=== PATIENT | female | born 1980 | race Caucasian/White ===

== ENCOUNTER 2018-08-23 09:14 | Emergency (ER) | payer MEDICAID ==
[~2018-08-23] VITALS: Ht 160 cm; Wt 64.0 kg
[~2018-08-23 09:14] MED LIST: PNV1TABL43 PO
[2018-08-23 09:22] VITALS: Ht 160 cm; Wt 64.0 kg
[2018-08-23] MEDS ORDERED: SOD CHLORIDE 0.9% 1,000 ML IV STA (10:20)
[2018-08-23] MEDS ORDERED: DIPHENHYDRAMINE 50 MG INJ IV ONE (10:30)
[2018-08-23] MEDS ORDERED: METOCLOPRAMIDE 10 MG INJ IV ONE (10:30)
[2018-08-23] MEDS ORDERED: CEFTRIAXONE 1 GM/50 ML (PMX) 50 ML IVPB ONE (12:30)
[2018-08-23] MEDS ORDERED: ACET500C5 PO (12:48)
[2018-08-23] MEDS ORDERED: BEN25 PO (12:48)
[2018-08-23] MEDS ORDERED: NITR-58 PO (12:48)
[2018-08-23] MEDS ORDERED: METO10TA92 PO (12:48)
[2018-08-23 13:14] VITALS: BP 120/61; PULSE 81; RESP 18
--- NOTE | 2018-08-23 13:30 | ERD ---
ER Documentation Chief Complaint Chief Complaint pt is bib family with c/o vomiting and dizzy 8 wks preg HPI 38-year-old female patient with no significant past medical history presents to the ED complaining of vomiting, dizziness, slight vaginal bleeding during her . She reports that she has had a few episodes of nonbilious nonbloody vomiting that started yesterday. Reports last menstruation was on June 15, 2018. Denies any chest pain, shortness of breath, nausea, vomiting, diarrhea, neck stiffness. Patient reports that she is unsure of her [employer]. Denies dysuria, urgency, frequency, hematuria. ROS All systems reviewed and are negative except as per history of present illness. Medications Home Meds Active Scripts Acetaminophen* (Tylophen*) 500 Mg Capsule, 1 CAP PO Q6H PRN for PAIN AND OR ELEVATED TEMP, #20 CAP Prov:SADIQ ACOSTA-C 08/23/18 Diphenhydramine Hcl* (Benadryl*) 25 Mg Cap, 25 MG PO Q6, #10 CAP Prov:SADIQ ACOSTA-Cameron 08/23/18 Metoclopramide* (Reglan*) 10 Mg Tablet, 10 MG PO Q6 PRN for NAUSEA AND/OR VOMITING, #10 TAB Prov:SADIQ ACOSTA-Cameron 08/23/18 Nitrofurantoin Monohyd Macrocr* (Macrobid*) 100 Mg Capsr, 100 MG PO BID for 7 Days, CAP Prov:SADIQ ACOSTA-C 08/23/18 Reported Medications Vit/Fe Fumarate/Fa* ( Vitamin Tablet*) 1 Tab Tablet, 1 TAB PO DAILY 05/27/13 Allergies Allergies: Coded Allergies: Penicillins (Verified Allergy, Unknown, 08/23/18) PMhx/Soc Medical and Surgical Hx: pt denies Medical Hx, pt denies Surgical Hx Hx Alcohol Use: No Hx Substance Use: No Hx Tobacco Use: No FmHx Family History: No diabetes, No coronary disease Physical Exam Vitals Vital Signs Date Temp Pulse Resp B/P (MAP) Pulse Ox O2 O2 Flow FiO2 Time Delivery Rate 08/23/18 98.9 81 18 120/61 98 Room Air 13:14 (80) 08/23/18 98.9 64 18 126/63 98 09:22 (84) Physical Exam Const: Prd-itc-cucwrexxt, well-nourished. In no acute distress. Head: Atraumatic, normocephalic Eyes: Normal Conjunctiva without injection. No purulent discharge. PERRLA. EOMI ENT: Normal external ear. Ear canal without erythema. Tympanic membrane pearly jean without effusion or bulging. Nasal canal clear with normal turbinates. Moist oropharynx without tonsillar exudates. Non-erythematous pharynx. Uvula midline. No drooling. No trismus. Neck: No cervical midline tenderness. Full range of motion. No meningismus. No cervical lymphadenopathy. No JVD. Resp: Clear to auscultation bilaterally. No wheezing, rhonchi, rales, or crackles. No accessory muscle use. No retractions. Cardio: Regular rate and rhythm. No murmurs, rubs or gallops. Abd: Soft, non tender, non distended. Normal bowel sounds. No palpable masses. No rebound tenderness. No guarding. Negative McBurney's Point. Negative Aguilera's Sign. Skin: Normal skin turgor. No petechiae or rashes Back: No midline tenderness. No CVA tenderness. Ext: No cyanosis, or edema. Distal pulses intact bilaterally. Neur: Awake and alert. Normal gait. Normal coordination. Cranial Nerves II- VII intact. Normal finger to nose. Muscle strength 5/5. Sensation intact. Psych: Normal Mood and Affect Results 24 hrs Laboratory Tests Test 08/23/18 10:41 White Blood Count 10.0 10^3/ul Red Blood Count 4.74 10^6/ul Hemoglobin 13.6 g/dl Hematocrit 39.8 % Mean Corpuscular Volume 84.0 fl Mean Corpuscular Hemoglobin 28.7 pg Mean Corpuscular Hemoglobin Concent 34.2 g/dl Red Cell Distribution Width 12.4 % Platelet Count 252 10^3/UL Mean Platelet Volume 9.5 fl Immature Granulocytes % 0.300 % Neutrophils % 87.0 % Lymphocytes % 10.2 % Monocytes % 2.3 % Eosinophils % 0.1 % Basophils % 0.1 % Nucleated Red Blood Cells % 0.0 /100WBC Immature Granulocytes # 0.030 10^3/ul Neutrophils # 8.7 10^3/ul Lymphocytes # 1.0 10^3/ul Monocytes # 0.2 10^3/ul Eosinophils # 0.0 10^3/ul Basophils # 0.0 10^3/ul Nucleated Red Blood Cells # 0.0 10^3/ul Urine Color YELLOW Urine Clarity CLOUDY Urine pH 6.0 Urine Specific [place] 1.024 Urine Ketones 2+ mg/dL Urine Nitrite NEGATIVE mg/dL Urine Bilirubin NEGATIVE mg/dL Urine Urobilinogen NEGATIVE mg/dL Urine Leukocyte Esterase 2+ Jazlyn/ul Urine Microscopic RBC > 182 /HPF Urine Microscopic WBC 40 /HPF Urine Squamous Epithelial Cells MANY /HPF Urine Mucus MODERATE /HPF Urine Hemoglobin 3+ mg/dL Urine Glucose NEGATIVE mg/dL Urine Total Protein 2+ mg/dl Sodium Level 137 mmol/L Potassium Level 3.8 mmol/L Chloride Level 104 mmol/L Carbon Dioxide Level 25 mmol/L Anion Gap 8 Blood Urea Nitrogen 11 mg/dl Creatinine 0.47 mg/dl Est Glomerular Filtrat Rate mL/min > 60 mL/min Glucose Level 119 mg/dl Calcium Level 9.3 mg/dl Total Bilirubin 0.3 mg/dl Direct Bilirubin 0.00 mg/dl Indirect Bilirubin 0.3 mg/dl Aspartate Amino Transf (AST/SGOT) 22 IU/L Alanine Aminotransferase (ALT/SGPT) 12 IU/L Alkaline Phosphatase 72 IU/L Total Protein 7.6 g/dl Albumin 4.2 g/dl Globulin 3.40 g/dl Albumin/Globulin Ratio 1.23 Lipase 62 U/L Beta HCG, Quantitative 90051.0 mIU/ml Current Medications Medications Dose Sig/Kristie Start Time Status Last (Trade) Ordered Route PRN Stop Time Admin Dose Reason Admin Sodium 1,000 ml @ Q1H STAT 08/23/18 DC 08/23/18 Chloride 1,000 mls/hr IV 10:20 10:38 08/23/18 11:19 10 mg ONCE ONCE 08/23/18 DC 08/23/18 Metoclopramid IV 10:30 10:38 e HCl 08/23/18 10:31 (Reglan) 25 mg ONCE ONCE 08/23/18 DC 08/23/18 Diphenhydrami IV 10:30 10:38 ne HCl 08/23/18 10:31 (Benadryl) Ceftriaxone 50 ml @ ONCE ONCE 08/23/18 DC Sodium 100 mls/hr IVPB 12:30 08/23/18 12:30 Procedures/MDM 38-year-old female patient presents to ED complaining of vaginal bleeding, vomiting, dizziness that started in her . Patient is afebrile and nontoxic-appearing. An ultrasound, beta-hCG, CBC, type and RH, UA was ordered to evaluate patient. CBC: No evidence of severe infection or anemia Urine: No elevation in nitrites, 2+ leukocyte esterase, 3+ hematuria. Rh: O positive. No indication for Rhogam at this time. beta Hc IMPRESSION: 1. Single living intrauterine gestation with estimated gestational age of 9 weeks and 5 days +/- 5 days. 2. Subchorionic hemorrhage. Patient has a single IUP of 9 weeks, 5 days. Patient also has a urinary tract infection based on 2+ leukocyte esterase noted on her urinalysis. Patient's bleeding symptoms have stabilized while in the department. Subchorionic hemorrhage noted. Pelvic rest recommended. Low suspicion for symptomatic anemia, ectopic , sepsis, PID, appendicitis, ovarian torsion, tubo- ovarian abscess, surgical abdomen, or other emergent conditions. Patient was educated that there is a risk for threatened . This patient presents to the ED with symptoms consistent with a viral acute upper respiratory infection. Patient's physical exam include lungs which were clear to auscultation and a normal pulse oximetry. There is a low suspicion for pneumonia, pneumothorax, mononucleosis, pulmonary embolism, epiglottitis, otitis media, otitis externa, viral/strep pharyngitis, sinusitis, myocarditis, pericarditis, endocarditis, peritonsillar abscess, mastoiditis, retropharyngeal abscess, meningitis, sepsis, acute abdomen or other emergent conditions. Fluids, rest, and symptomatic treatment are recommended for the management of patient's symptoms. Diagnosis: Vaginal bleeding and patient less than 20 weeks, Urinary tract infection, Cough Discharge medications: Macrobid, Reglan, Benadryl Patient was instructed to return to the ED for any new or worsening symptoms. They should otherwise follow up with the primary care provider within 2-3 days. The patient's questions were answered at the time of discharge. Patient understo od and agreed with discharge management. Patient to follow up with [employer] in 2 days for further evaluation and treatment. Patient is to return sooner to the ED for any worsening symptoms. Patient's questions were answered. Patient understood and agreed with discharge plan. Departure Diagnosis: Primary Impression: Vaginal bleeding in patient at less than 20 weeks ges... Additional Impressions: Urinary tract infection Urinary tract infection type: site unspecified Hematuria presence: with hematuria Qualified Codes: N39.0 - Urinary tract infection, site not specified; R31.9 - Hematuria, unspecified Cough Condition: Stable Patient Instructions: Urinary Tract Infections in Women, Vaginal Bleed in , Uri, Viral, No Abx (Adult) Referrals: [facility] Usted se angela hecho un examen mdico de control que le indica que no est en maykel condicin que requiera tratamiento urgente en el Departamento de Emergencia. Un estudio ms profundo y el tratamiento de chiang condicin pueden esperar sin ningn riesgo hasta que usted sea atendida/o en el consultorio de chiang mdico o maykel clnica. Es responsabilidad suya arreglar maykel roxy para el seguimiento del norm. MANEJO DE CONDICIONES NO URGENTES EN EL FUTURO 1) Si usted tiene un mdico de atencin primaria: Usted debera llamar a chiang mdico de atencin primaria antes de venir al departamento de emergencia. Despus de las horas de consultorio, chiang doctor o chiang asociado/a est disponible por telfono. El mdico o enfermero de neli en el servicio telefnico puede asesorarle por franco medio para atender el problema, o norm contrario se puede programar maykel roxy. 2) Si usted no tiene un mdico de atencin primaria: Llame al mdico o clnica de referencia que aparece abajo carmelo las horas de consultorio para hacer maykel roxy para que le vean. CLINICAS: [facility] [phone] [phone] [facility] [phone] [address] [facility] [phone] [facility]. [facility] 848 [phone] 68[address] [facility] [phone] [facility] () Usted se angela hecho un examen mdico de control que le indica que no est en maykel condicin que requiera tratamiento urgente en el Departamento de Emergencia. Un estudio ms profundo y el tratamiento de chiang condicin pueden esperar sin ningn riesgo hasta que usted sea atendida/o en el consultorio de chiang mdico o maykel clnica. Es responsabilidad suya arreglar maykel roxy para el seguimiento del norm. MANEJO DE CONDICIONES NO URGENTES EN EL FUTURO 1) Si usted tiene un mdico de atencin primaria: Usted debera llamar a chiang mdico de atencin primaria antes de venir al departamento de emergencia. Despus de las horas de consultorio, chiang doctor o chiang asociado/a est disponible por telfono. El mdico o enfermero de neli en el servicio telefnico puede asesorarle por franco medio para atender el problema, o norm contrario se puede programar maykel roxy. 2) Si usted no tiene un mdico de atencin primaria: Llame al mdico o condado institucions de referencia que aparece abajo carmelo las horas de consultorio para hacer maykel roxy para que le vean. SI USTED NO PUEDE PAGAR PARA DAVID UN MEDICO puede ir a: [facility] [address] [place] [address] [facility] [address] [place] [address] [facility] [address] [place] [address] [facility] [address] [place] [address] [employer] [place] [address] [facility] [address] [place] [address] OFFICE FAX , JOSE DE JESUS [address] [place] [address] DR. SINCLAIR, GRISEL [address] [place] [address] DR KEATING, [facility] [address] [facility], [address], [place] [address] DR PERERACHANCE, [facility] [address] [place] [address] [facility] [address] [place] [address] [address] [facility] [id number] - [address] SHIELDS, LUTHER [address], [place] [address] DR DONALDSON, LILLIE [address] [facility]. [address], [place] [address] DR SHELDON, FARID [address] [place], [place] [id number] [facility] Hours: 8:00 am - 5:00 pm Additional Instructions: Llame al doctor MAANA y suman maykel ROXY PARA DENTRO DE 2-3 RODRIGUEZ.Dgale a la secretaria que nosotros le instruimos hacer esta roxy.Avise o llame si chiang condicin se empeora antes de la roxy. Regresa aqui si peor o no mejor. SADIQ ACOSTA PA-C Aug 23, 2018 13:30
== END 2018-08-23 13:22 | disposition home or self-care (01) ==
LOC: FTE 09:14
DX: O20.9 Hemorrhage in early pregnancy, unspecified (principal); O23.41 Unspecified infection of urinary tract in pregnancy, first trimester; O99.89 Other specified diseases and conditions complicating pregnancy, childbirth and the puerperium; R05 Cough; Z3A.09 9 weeks gestation of pregnancy
CPT/HCPCS: 76801; 80053; 81001; 83690; 84702; 85025; 86900; 86901; J1200; J2765; J7030; 36415; 96374; 96375

== ENCOUNTER 2018-09-16 16:24 | Observation (INO) | payer MEDICAID ==
[~2018-09-16] VITALS: Ht 167.6 cm; Wt 58.6 kg
[~2018-09-16 16:24] MED LIST changes: +ACET500C5 PO; +BEN25 PO; +METO10TA92 PO; +NITR-58 PO
[2018-09-16] MEDS ORDERED: ACETAMINOPHEN 325 MG TAB PO STA (16:58)
[2018-09-16] MEDS ORDERED: ONDANSETRON 4 MG INJ ONE (18:56)
[2018-09-16] MEDS ORDERED: ONDANSETRON 4 MG INJ IV STA ×3 (18:57→23:58)
[2018-09-16] MEDS ORDERED: SOD CHLORIDE 0.9% 1,000 ML IV ONE (19:00)
[2018-09-16] MEDS ORDERED: HYDROCODONE/APAP (5/325) TAB PO ONE (22:00)
[2018-09-16] MEDS ORDERED: LACTATED RINGER'S 1,000 ML IV ONE (22:00)
[2018-09-17] VITALS (12 sets, daily range): BP systolic 101–149; BP diastolic 54–112; PULSE 89–106; RESP 18–36; Ht 167.6 cm; Wt 58.6 kg
[2018-09-17] MEDS ORDERED: SOD CHLORIDE 0.9% 1,000 ML IV ONE
[2018-09-17] MEDS ORDERED: METHYLERGONOVINE 0.2 MG INJ IM ONE (01:00)
--- NOTE | 2018-09-17 01:08 | ERD ---
ER Documentation Chief Complaint Chief Complaint Complains of vag bleed and since today HPI 38-year-old female coming in today with Chief Complaint: vaginal bleeding History of Present Illness: Patient coming in today with complaint of vaginal bleeding. Patient reports she is 12 to 13 weeks . Patient reports passing a large clot at home at approximately 3:30 that appeared to be a fetus. Patient is G5, P2 patient reports visit on. 09/13 in which she was informed she was having a possible miscarriage. Patient is having bleeding with clots. Associated symptoms includes abdominal pain. Review of systems: All systems were reviewed and are negative except for what is indicated in the history of present illness. Past Medical History: Negative for hypertension, diabetes or other medical problems Social History: Patient denies tobacco, alcohol, elicit drug use Medications: None Allergies: NKDA Social Concerns: Denies ROS All systems reviewed and are negative except as per history of present illness. Medications Home Meds Reported Medications Vit #76/Iron,Carb/FA (Prenatabs Rx Tablet) 1 Each Tablet, 1 EACH PO D AILY, TAB 09/17/18 Discontinued Reported Medications Vit/Fe Fumarate/Fa* ( Vitamin Tablet*) 1 Tab Tablet, 1 TAB PO DAILY 05/27/13 Discontinued Scripts Acetaminophen* (Tylophen*) 500 Mg Capsule, 1 CAP PO Q6H PRN for PAIN AND OR ELEVATED TEMP, #20 CAP Prov:SADIQ ACOSTA PA-C 08/23/18 Diphenhydramine Hcl* (Benadryl*) 25 Mg Cap, 25 MG PO Q6, #10 CAP Prov:SADIQ ACOSTA PA-C 08/23/18 Metoclopramide* (Reglan*) 10 Mg Tablet, 10 MG PO Q6 PRN for NAUSEA AND/OR VOMITING, #10 TAB Prov:SADIQ ACOSTA PA-C 08/23/18 Nitrofurantoin Monohyd Macrocr* (Macrobid*) 100 Mg Capsr, 100 MG PO BID for 7 Days, CAP Prov:SADIQ ACOSTA PA-C 08/23/18 Allergies Allergies: Coded Allergies: Penicillins (Verified Allergy, Unknown, 09/17/18) PMhx/Soc Medical and Surgical Hx: pt denies Medical Hx, pt denies Surgical Hx Hx Alcohol Use: No Hx Substance Use: No Hx Tobacco Use: No FmHx Family History: No diabetes, No coronary disease Physical Exam Vitals Vital Signs Date Temp Pulse Resp B/P (MAP) Pulse Ox O2 O2 Flow FiO2 Time Delivery Rate 09/17/18 99.0 82 18 132/62 99 Room Air 00:32 (85) 09/16/18 72 92/51 (65) 23:56 71/36 (48) 09/16/18 98.4 96 18 106/62 99 Room Air 21:37 (77) 09/16/18 99.6 82 17 106/66 99 Room Air 19:22 (79) 09/16/18 97.9 115 20 142/80 99 16:26 (100) Physical Exam Const: No acute distress Head: Atraumatic Eyes: Normal Conjunctiva ENT: Normal External Ears, Nose and Mouth. Neck: Full range of motion. No meningismus. Resp: Clear to auscultation bilaterally Cardio: Regular rate and rhythm, no murmurs Abd: Soft, non distended. Normal bowel sounds. tender to palpation to the pelvic region, suprapubic. Skin: No petechiae or rashes Back: No midline or flank tenderness Ext: No cyanosis, or edema Neur: Awake and alert Psych: Normal Mood and Affect Pelvic Exam: Abdomen: Tender External Genitalia: Normal Skin Speculum: Normal vaginal mucosa, bright red blood and clots noted to vaginal canal (clots removed) Bimanual: No adnexal masses or tenderness, No CMT Result Diagram: 09/17/18 0039 Results 24 hrs Laboratory Tests Test 09/16/18 17:14 09/17/18 00:39 White Blood Count 11.7 10^3/ul 13.8 10^3/ul Red Blood Count 4.44 10^6/ul 2.67 10^6/ul Hemoglobin 12.8 g/dl 7.8 g/dl Hematocrit 37.2 % 22.6 % Mean Corpuscular Volume 83.8 fl 84.6 fl Mean Corpuscular Hemoglobin 28.8 pg 29.2 pg Mean Corpuscular Hemoglobin Concent 34.4 g/dl 34.5 g/dl Red Cell Distribution Width 13.1 % 13.5 % Platelet Count 270 10^3/UL 187 10^3/UL Mean Platelet Volume 9.4 fl 9.6 fl Immature Granulocytes % 0.400 % 0.400 % Neutrophils % 74.6 % 82.0 % Lymphocytes % 17.5 % 11.7 % Monocytes % 6.5 % 5.7 % Eosinophils % 0.8 % 0.1 % Basophils % 0.2 % 0.1 % Nucleated Red Blood Cells % 0.0 /100WBC 0.0 /100WBC Immature Granulocytes # 0.050 10^3/ul 0.050 10^3/ul Neutrophils # 8.7 10^3/ul 11.3 10^3/ul Lymphocytes # 2.0 10^3/ul 1.6 10^3/ul Monocytes # 0.8 10^3/ul 0.8 10^3/ul Eosinophils # 0.1 10^3/ul 0.0 10^3/ul Basophils # 0.0 10^3/ul 0.0 10^3/ul Nucleated Red Blood Cells # 0.0 10^3/ul 0.0 10^3/ul Beta HCG, Quantitative 36629.0 mIU/ml Current Medications Medications Dose Sig/Kristie Start Time Status Last (Trade) Ordered Route PRN Stop Time Admin Dose Reason Admin 650 mg ONCE STAT 09/16/18 DC 09/16/18 Acetaminophen PO 16:58 17:10 (Tylenol 09/16/18 16:59 Tab) Ondansetron 4 mg STK-MED 09/16/18 DC HCl (Zofran ONCE .ROUTE 18:56 Inj) 09/16/18 18:57 Sodium 1,000 ml @ Q1H ONCE 09/16/18 DC 09/16/18 Chloride 1,000 mls/hr IV 19:00 19:15 09/16/18 19:59 Ondansetron 4 mg ONCE STAT 09/16/18 DC 09/16/18 HCl (Zofran IV 18:57 19:15 Inj) 09/16/18 18:58 Lactated 1,000 ml @ Q1H ONCE 09/16/18 DC 09/16/18 Ringer's 1,000 mls/hr IV 22:00 21:48 09/16/18 22:59 Ondansetron 4 mg ONCE STAT 09/16/18 DC 09/16/18 HCl (Zofran IV 21:39 21:48 Inj) 09/16/18 21:41 1 tab ONCE ONCE 09/16/18 DC 09/16/18 Acetaminophen PO 22:00 21:49 / 09/16/18 22:01 Hydrocodone Bitart ([place] (5/325)) Sodium 1,000 ml @ Q1H ONCE 09/17/18 DC 09/17/18 Chloride 1,000 mls/hr IV 00:00 00:19 09/17/18 00:59 Ondansetron 4 mg ONCE STAT 09/16/18 DC 09/17/18 HCl (Zofran IV 23:58 00:19 Inj) 09/16/18 23:59 0.2 mg ONCE ONCE 09/17/18 DC 09/17/18 Methylergonov IM 01:00 01:37 ine Maleate 09/17/18 01:01 (Methergine) Procedures/MDM ED course includes a thorough examination and history. ED course includes labs; CBC, beta quantitative, urinalysis. ED course includes imaging; OB abdomen and transvaginal ultrasound. ED course includes medication; acetaminophen for pain. Patient reassessment at 1853: CBC WNL. Ultrasound complete and patient is back and ultrasound. When patient went from lying down to standing up, patient agreed to have had a vasovagal effect and had added profuse vomiting. Upon standing, large clot came from vaginal canal and was on floor. Nurses are at bedside for assistance in getting patient back to bed. No syncopal episode. Will order IV NS and Zofran. For ultrasound results reviewed. Impression: 1. Evidence of interval spontaneous since 09/13/2018 with probable residual thrombus in the endometrial canal. No residual formed parts are visible at this time. 2. Numerous small uterine leiomyomata. Patient reassessment at 2130: Disposition given. Patient reports feeling better, still with some weakness and mild dizziness but reports feeling better. 2 family members at the bedside. Translation services using agent #[id number]. Will give patient 1 more liter of fluids and 1 more dose of Zofran due to mild nausea still present. Patient reassessment at 2315: Upon patient trying to get out of bed, patient had a near syncopal episode. Will order orthostatic vital signs . Patient and nurse reports consistent bleeding, bleeding has increased and patient is currently at 2-3 pads per hour. LAB INSTRUCTOR consult (LUTHER SHIELDS): After speaking with attending physician Dr. Davenport regarding physical exam, patient reassessment, imaging studies; states it would be appropriate to consult [employer] to see if patient needs a D&C due to retained products of conception. [employer] called and stated they will. Return to ER for bedside assessment of patient. Reassessment at 2352: . Will order CBC and another dose of fluids and dose of Zofran, due to patient having vasovagal-like response when trying to stand up during orthostatic vital sign. Reassessment at 0002: Patient with continuous bleeding, vaginal exam repeated. Patient with large significant clot approximately 3 softball sizes and vaginal canal that were removed. Patient appears pale but calm and cooperative and s peaking in clear sentences. Mild grimacing noted with removal of large clots. Position consultation @0038: CANE FURNITURE MAKER (LUTHER SHIELDS)to bedside for vaginal exam. No longer sees any other clots in vaginal canal. Bleeding seems to be at a decreased frequency. One-time dose of IM Methergine ordered. CBC pending. ED physician consultation 0100: Spoke to Dr. Davenport guarding patient physical exam and H&H findings. H&H has dropped, and patient is symptomatic. Plans to admit. [employer] consult consulted by phone [phone]. States will except admission. ED Dr. Davenport notified.Admission orders pending. Patient reassessment 02:00: She appears to be more stable. Vital signs within normal limits while patient is lying supine in bed. Patient assisted to bedside commode without any syncopal episode. Awaiting bed assignment. Dr. Davenport to assume care if patient will be transferred from fast-track to main ED. Otherwise healthy patient presenting with constellation of symptoms likely representing complete as characterized by history, physical exam findings. Disposition for admission. Departure Diagnosis: Primary Impression: Incomplete Additional Impression: Low hemoglobin and low hematocrit Condition: BIANCA Dove NP Sep 17, 2018 01:08
--- NOTE | 2018-09-17 01:16 | QN ---
Documentation Comment REGISTER CLERK Note Pt is a 38 y.o. A3 who came in today with bleeding and a reports of passing a fetus at home. Pt was 13 weeks today by a previous US on a previous visit in August. On US the fetus was gone and there was some residual clot in the uterus but the pt continued to bleed. Per the pt's friend they very clearly saw the baby come out but without the surrounding sac or placenta. The fetus was left at home. After I was called the PA rechecked the pt and found a large amount of tissue in the vault consistent with placenta and sac when examined. I rechecked the pt and there was now minimal bleeding and the cervix appeared closed and there was no more tissue to be seen. The pt's blood type is O+. Her initial Hgb was 12.8 and a very recent repeat 7.8, after 3 liters of IV fluids. The PA stated the pt needed to be admitted due to the highly variable vital signs and the blood loss, after discussion with the attending MD. PMHx: none. PSHx: none. POBHx: x 2 which were the 1st and 4th pregnancies with 2 miscarriages in between. No complications in the 2 full term pregnancies. All: PCN Abdomen soft, NT. Vault: no clots seen, only a small amount of old blood. Cx closed. Tissue examined and the placenta and sac do appear to be present. A: Completed AB. P: Admit for observation. Will not order blood at this time as if the pt's VS's stabilize then would not transfuse her. LUTHER SHIELDS MD Sep 17, 2018 01:15
[2018-09-17] MEDS ORDERED: PREN-19 PO (06:36)
[2018-09-17] MEDS ORDERED: LIDOCAINE 2% (SDV) 5 ML INJ ONE (07:00)
[2018-09-17] MEDS ORDERED: SUCCINYLCHOLINE CHLORIDE 100 MG/5 ML SYG IV ONE (07:00)
[2018-09-17] MEDS ORDERED: ETOMIDATE 20 MG INJ ONE (07:00)
--- NOTE | 2018-09-17 18:18 | QN ---
Documentation Comment Hb is dropped from 12.8 to 7 ,Ultrasound shows Retained product of conception.1 unit PRBC ordered to transfuse ,patient is symptomatic ,chief of Anesthesia ,informs me that he is not able to provide any anesthesiologist at this time As I will be at the end of my shift at 7PM,Case will be signed out to ,recreation program specialist laborist CARLEEN WORKMAN M.D. Sep 17, 2018 18:18
--- NOTE | 2018-09-17 18:39 | PREAC ---
Date/Time of Note Date/Time of Note DATE: 09/17/18 TIME: 18:34 Anesthesia Eval and Record Evaluation Time Pre-Procedure Interview DATE: 09/17/18 TIME: 18:34 Age 38 Sex female NPO: Other (Pt has eaten chicken noodle soup with carrots and noodles - surgeon is marking surgery an emergent surgery) Preoperative diagnosis vaginal bleeding Planned procedure D&C Past Medical History Past Medical History: Includes Heme: Other ( vaginal bleeding) Surgery & Anesthesia Issues No known issue Meds Anticoagulation: No Beta Juliet within 24 hr: No Reason Beta Juliet not given: Pt. not on B-Juliet Reported Medications Vit #76/Iron,Carb/FA (Prenatabs Rx Tablet) 1 Each Tablet, 1 EACH PO DAILY, TAB 09/17/18 Discontinued Reported Medications Vit/Fe Fumarate/Fa* ( Vitamin Tablet*) 1 Tab Tablet, 1 TAB PO DAILY 05/27/13 Discontinued Scripts Acetaminophen* (Tylophen*) 500 Mg Capsule, 1 CAP PO Q6H PRN for PAIN AND OR ELEVATED TEMP, #20 CAP Prov:SADIQ ACOSTA PA-C 08/23/18 Diphenhydramine Hcl* (Benadryl*) 25 Mg Cap, 25 MG PO Q6, #10 CAP Prov:SADIQ ACOSTA PA-C 08/23/18 Metoclopramide* (Reglan*) 10 Mg Tablet, 10 MG PO Q6 PRN for NAUSEA AND/OR VOMITING, #10 TAB Prov:SADIQ ACOSTA PA-C 08/23/18 Nitrofurantoin Monohyd Macrocr* (Macrobid*) 100 Mg Capsr, 100 MG PO BID for 7 Days, CAP Prov:SADIQ ACOSTA PA-C 08/23/18 Current Medications Influenza Virus Vaccine Quadrival (Fluzone) 0.5 ml ONCE ONCE IM* ; Start 09/18/18 at 10:00; Stop 09/18/18 at 10:01 Meds reviewed: Yes Allergies Coded Allergies: Penicillins (Verified Allergy, Unknown, 09/17/18) Allergies Reviewed: Yes Labs/Studies Labs Reviewed: Reviewed by anesthesiologist Result Diagram: 09/17/18 1217 Laboratory Tests 09/17/18 12:17 Blood Bank Test 09/17/18 17:31 Antibody Screen NEGATIVE Blood Product Summary Counts Blood Type O POSITIVE Crossmatch Red Blood Cells test: Positive Pre-procedure Exam Last vitals Vital Signs Date Temp Pulse Resp B/P (MAP) Pulse Ox O2 O2 Flow FiO2 Time Delivery Rate 09/17/18 98.8 19 101/58 99 Room Air 11:55 (72) 09/17/18 94 11:30 09/17/18 2.0 04:39 Airway: Adequate mouth opening, Adequate thyromental dist Mallampati: Mallampati II Teeth: Normal Lung: Normal Heart: Normal ASA Physical Status ASA physical status: 2 Emergency: E Planned Anesthetic General/MAC: ETT Pre-operative Attestations Prior to commencing anesthesia and surgery, the patient was re-evaluated, there was verification of: *The patient's identity *The results of appropriate recent lab work and preoperative vital signs *The above evaluation not changing prior to induction *Anesthetic plan, risk benefits, alternative and complications discussed with patient/family; questions answered; patient/family understands, accepts and wishes to proceed. COLBY CORONADO Sep 17, 2018 18:39
[2018-09-17] MEDS ORDERED: MIDAZOLAM 1 MG/ML 2 ML INJ IV PRN (19:00)
[2018-09-17] MEDS ORDERED: IPRATROPIUM (NEB) 0.5 MG/2.5 ML AMP HHN PRN (19:00)
[2018-09-17] MEDS ORDERED: DIPHENHYDRAMINE 50 MG INJ IV PRN (19:00)
[2018-09-17] MEDS ORDERED: OXYCODONE/ACETAMINOPHEN (5/325) TAB PO PRN ×2 (19:00)
[2018-09-17] MEDS ORDERED: ALBUTEROL 0.083% (NEB) 2.5 MG/3 ML AMP HHN PRN (19:00)
[2018-09-17] MEDS ORDERED: HYDROmorphONE 1 MG/5 ML IV SYRINGE IV PRN ×3 (19:00)
[2018-09-17] MEDS ORDERED: FENTAnyl 50 MCG/ML VIAL IV PRN ×3 (19:00)
[2018-09-17] MEDS ORDERED: LABETALOL HCL 20MG INJ IV PRN (19:00)
[2018-09-17] MEDS ORDERED: TRIMETHOBENZAMIDE 100 MG/ML VIAL IM PRN (19:00)
[2018-09-17] MEDS ORDERED: EPHEDrine SULFATE 50 MG/5 ML SYG IV PRN (19:00)
[2018-09-17] MEDS ORDERED: hydrALAzine 20 MG INJ IV PRN (19:00)
[2018-09-17] MEDS ORDERED: MEPERIDINE 25 MG INJ IV PRN (19:00)
[2018-09-17] MEDS ORDERED: ONDANSETRON 4 MG INJ IV PRN (19:00)
[2018-09-17] MEDS ORDERED: DEXAMETHASONE 4 MG/ML 5 ML INJ ONE (19:11)
[2018-09-17] MEDS ORDERED: ONDANSETRON 4 MG INJ ONE (19:11)
[2018-09-17] MEDS ORDERED: GLYCOPYRROLATE 0.4 MG INJ ONE (19:11)
[2018-09-17] MEDS ORDERED: ROCURONIUM 50 MG INJ ONE (19:11)
[2018-09-17] MEDS ORDERED: NEOSTIGMINE 3 MG/3 ML SYRINGE ONE (19:11)
[2018-09-17] MEDS ORDERED: FENTAnyl 50 MCG/ML VIAL ONE (19:11)
[2018-09-17] MEDS ORDERED: PROPOFOL 20 ML ONE (19:11)
[2018-09-17] MEDS ORDERED: CEFAZOLIN 1 GM INJ ONE (19:11)
[2018-09-17] MEDS ORDERED: MIDAZOLAM 1 MG/ML 2 ML INJ ONE (19:11)
--- NOTE | 2018-09-17 19:40 | OPPN ---
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 Sep 17, 2018 19:40
--- NOTE | 2018-09-17 19:53 | PAC ---
Date/Time of Note Date/Time of Note DATE: 09/17/18 TIME: 19:53 Post-Anesthesia Notes Post-Anesthesia Note Last documented vital signs Vital Signs Date Temp Pulse Resp B/P (MAP) Pulse Ox O2 O2 Flow FiO2 Time Delivery Rate 09/17/18 98.8 19 101/58 99 Room Air 11:55 (72) 09/17/18 94 11:30 09/17/18 2.0 04:39 Activity: WNL Respiratory function: WNL Cardiovascular function: WNL Mental status: Baseline Pain reasonably controlled: Yes Hydration appropriate: Yes Nausea/Vomiting absent: Yes Atilio Santana M.D. Sep 17, 2018 19:53
[2018-09-18 01:16] VITALS: BP 98/50; RESP 20
[2018-09-18 08:46] VITALS: BP 100/58; PULSE 89
[2018-09-18] MEDS ORDERED: CYANOCOBALAMIN 1000 MCG INJ IM ONE (13:30)
--- NOTE | 2018-09-18 15:30 | PN ---
Date/Time of Note Date/Time of Note DATE: 09/18/18 TIME: 15:26 OB Subjective Subjective Subjective POD#1 Patient is doing well. She denies nausea, vomiting, shortness of breath, chest pain, headache. She has been ambulating without difficulty, tolerating regular diet. Pain is well controlled on current medications OB Objective Objective Objective General: AAO X 3, comfortable, NAD, appropriate mood and affect. ABD: +BS. Soft, non-tender. Uterus 2 cm below umbilicus Flank: No CVA tenderness (B/L) LE: Mild edema. No clubbing, cyanosis, thigh or calf tenderness (B/L). Homans 'sign is negative OB Assessment/Plan Other plan: 38-year-old -0-3-2 with incomplete s/p suction curettage. She is afebrile vital sign is stable pain is controlled on current medication. Operative finding care discussed in detail with patient. She expressed un derstanding. All of her questions answered. She has secondary anemia due to acute blood loss. Ferrous sulfate 325 mg every 8 hours 3 folic acid 1 mg p.o. daily over for 4 months ordered. Vitamin B12 1000 mcg IM x1 prior to discharge given. I strongly recommend follow-up with her primary OB and check beta-hCG in 1 week. Discharged home in stable condition. DEXTER BANDA Sep 18, 2018 15:30
--- NOTE | 2018-09-18 15:31 | DS ---
Date/Time of Note Date/Time of Note DATE: 09/18/18 TIME: 15:30 Discharge Summary Admission/Discharge Info Admit Date/Time Sep 17, 2018 at 02:22 Discharge Date/Time 09/18/2018 Discharge Diagnosis Incomplete Patient Condition: Stable Consults None Procedures suction curettage Hx of Present Illness Please see H&P for detailed Hospital Course 38-year-old -0-3-2 with incomplete s/p suction curettage. She is afebrile vital sign is stable pain is controlled on current medication. Operative finding care discussed in detail with patient. She expressed understanding. All of her questions answered. She has secondary anemia due to acute blood loss. Ferrous sulfate 325 mg every 8 hours 3 folic acid 1 mg p.o. daily over for 4 months ordered. Vitamin B12 1000 mcg IM x1 prior to discharge given. I strongly recommend follow-up with her primary OB and check beta-hCG in 1 week. Discharged home in stable condition. Home Meds Reported Medications Vit #76/Iron,Carb/FA (Prenatabs Rx Tablet) 1 Each Tablet, 1 EACH PO DAILY, TAB 09/17/18 Discontinued Reported Medications Vit/Fe Fumarate/Fa* ( Vitamin Tablet*) 1 Tab Tablet, 1 TAB PO DAILY 05/27/13 Discontinued Scripts Acetaminophen* (Tylophen*) 500 Mg Capsule, 1 CAP PO Q6H PRN for PAIN AND OR ELEVATED TEMP, #20 CAP Prov:SADIQ ACOSTA-Cameron 08/23/18 Diphenhydramine Hcl* (Benadryl*) 25 Mg Cap, 25 MG PO Q6, #10 CAP Prov:SADIQ ACOSTA-Cameron 08/23/18 Metoclopramide* (Reglan*) 10 Mg Tablet, 10 MG PO Q6 PRN for NAUSEA AND/OR VOMITING, #10 TAB Prov:SADIQ ACOSTA-Cameron 08/23/18 Nitrofurantoin Monohyd Macrocr* (Macrobid*) 100 Mg Capsr, 100 MG PO BID for 7 Days, CAP Prov:SADIQ ACOSTA-C 08/23/18 Primary Care Provider Care Physician No Primary Time spent on discharge: > 30 minutes Pending Labs Pathology report DEXTER BANDA Sep 18, 2018 15:31
[2018-09-18 17:06] VITALS: BP 110/70; PULSE 98; RESP 18
--- NOTE | 2018-09-19 16:03 | OPR ---
DATE OF OPERATION: 09/17/2018 PREOPERATIVE DIAGNOSIS: Retained products of conception, incomplete . POSTOPERATIVE DIAGNOSIS: Retained products of conception, incomplete . OPERATION PERFORMED: Dilation and curettage and suction. ATTENDING SURGEON: Magnus Miller MD ANESTHESIOLOGIST: Dr. Santana. ANESTHESIA: General. COMPLICATIONS: None. ESTIMATED BLOOD LOSS: Minimal. DESCRIPTION OF PROCEDURE: The patient was taken to the operating room where general anesthesia was f ound to be adequate. The patient was placed in dorsal lithotomy position. After prep and drape, a w eighted speculum was placed inside the vaginal vault. Anterior lip of the cervix was grasped by the single-tooth tenaculum. Cervix was 1 cm open. Suction size 7 was inserted. Intrauterine cavity was suctioned. Sharp curettage of endometrial tissue was done. The instruments were removed. Hemostas is achieved. The patient tolerated the procedure well and was transferred to recovery room in stable condition. There was no complication regarding this surgery. Dictated By: MAGNUS MILLER MD RG/NTS Conf#: [id number] DID#: [id number] CC: LUTHER SHIELDS MD;*EndCC*
== END 2018-09-18 17:08 | disposition home or self-care (01) ==
LOC: FTE 16:24 → MS3 09-17 02:22
PROVIDERS: ADMIT Obstetrics & Gynecology; ATTEND Obstetrics & Gynecology
DX: O03.4 Incomplete spontaneous abortion without complication (principal)
CPT/HCPCS: 36415; 36430; 59812; 76801; 76856; 84702; 85025; 86850; 86900; 86901; 86920; 88305; 96372; 96374; 96376; J0690; J1100; J1170; J1200; J2210; J2250; J2405; J2710; J3010; J3420; J7030; J7120; P9016; Z7500; Z7502; Z7512; Z7610; 90686; G0378